=== PATIENT | female | born 1940 | race Caucasian/White ===

== ENCOUNTER → 2022-02-14 | Outpatient (CLI) | payer MEDICARE, SELFPAY ==
--- NOTE | 2022-02-14 11:48 | MRI_ITS ---
EXAM: MR RIGHT LOWER EXTREMITY WITHOUT INTRAVENOUS CONTRAST, HIP CLINICAL INDICATION: RIGHT HIP PAIN -- S/P RIGHT TOTAL HIP 2012 Technologist Notes Other, SHARP PAIN IN RIGHT BUTTOCK AND LATERAL SIDE OF HIP X 4 MONTHS. NO PREVIOUS IMAGING TECHNIQUE: Multiplanar and multisequence MR images of the right hip without intravenous contrast. This report was created using [employer] report generation technology. COMPARISON: None. FINDINGS: TENDONS: FLEXORS: Unremarkable. Intact. EXTENSORS/HAMSTRING: Unremarkable. Intact. ABDUCTORS: Unremarkable. Intact. ADDUCTORS: Unremarkable. Intact. ROTATORS: Unremarkable. Intact. MUSCLES: Unremarkable. Normal bulk and signal. FLUID: Unremarkable. No joint effusion. No trochanteric bursitis. LABRUM: Unremarkable. No evidence of a tear on this non-arthrogram exam. CARTILAGE: Unremarkable. Articular cartilage intact. 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 There is mild articular joint space narrowing of the left hip. There are degenerative changes of the lumbar spine. No femoral neck fracture. No avascular necrosis of the femoral head. No sacral insufficiency fracture. OTHER SOFT TISSUES: Unremarkable. MRI/Lower Ext Joint Only (Routine) IMPRESSION: 1. Total right hip arthroplasty. This is causing artifact. 2. 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 There is mild articular joint space narrowing of the left hip. Electronically Signed: Henri Alcantar MD at 14:12 EDT ,
== END | disposition home or self-care (01) ==
PROVIDERS: PCP Family Medicine; Referring Provider Family Medicine; Visit Provider Family Medicine
DX: M25.551 Pain in right hip (principal)
CPT/HCPCS: 73721